=== PATIENT | female | born 1955 | race Caucasian/White ===

== ENCOUNTER 2020-08-13 10:31 | Outpatient (CLI) | payer MEDICARE | END 2020-08-13 10:32 | disposition EMS.NT | LOC: EMS 10:31 | DX: Z04.3 Encounter for examination and observation following other accident (principal); M25.532 Pain in left wrist; R07.81 Pleurodynia ==

== ENCOUNTER 2020-08-13 11:22 | Emergency (ER) | payer MEDICARE ==
--- NOTE | 2020-08-13 12:36 | XRAY Report ---
PROCEDURE: Ribs w/PA Chest LT INDICATIONS: rib/wrist inj TECHNIQUE: 2 views of the left lower ribs were acquired, along with a single view chest. COMPARISON: None. FINDINGS: Surgical changes and devices: None. Bones and chest wall: No fractures or dislocations, but the body habitus is large and the metallic m arker indicating area of reported tenderness on the left is low over the chest and soft tissues rende ring accurate assessment very limited in that area. No suspicious bony lesions. Overlying soft tiss ues appear unremarkable. Lungs and pleura: No pleural effusions or pneumothorax. Lungs appear clear likely clear except for presence of a 1 x 2 cm focal radiodensity at the upper left lung, asymmetric when compared to the vivek e area on the right.. Mediastinum: Mediastinal contours appear normal. Heart size is normal. IMPRESSION: No rib fracture found but body habitus is large and quality of visualization in the lower lateral lef t chest wall is very limited due to these factors. Possible lung mass 1 x 2 cm superimposed on the left upper lobe, in an area that could represent asym metric calcification at the first costochondral junction but a similar appearance is not seen on the right. Noncontrast chest CT may be warranted versus follow-up by chest plain films in 3, 6 and 12 mon ths. Reviewed by: German Alexander MD on 08/13/2020 12:34 PM PDT Approved by: German Alexander MD on 08/13/2020 12:34 PM PDT Station ID: [id number]
--- NOTE | 2020-08-13 12:37 | XRAY Report ---
PROCEDURE: Wrist 4 View LT INDICATIONS: rib/wrist inj TECHNIQUE: 4 views of the wrist were acquired. COMPARISON: None FINDINGS: Bones: No fractures or dislocations but there is severe arthritic change at the base of the first me tacarpal as it articulates against the trapezium which also is severely degenerated distally.. No de oliveira spicious bony lesions. Scaphoid view: No trauma to the scaphoid is found. Soft tissues: No suspicious soft tissue calcifications. IMPRESSION: Severe degenerative osteoarthritis is seen at the joint space between the distal trapezium and the ba se of the first metacarpal. No acute fracture is suspected. Reviewed by: German Alexander MD on 08/13/2020 12:36 PM PDT Approved by: German Alexander MD on 08/13/2020 12:36 PM PDT Station ID: [id number]
--- NOTE | 2020-08-13 13:37 | CT Report ---
PROCEDURE: CHEST WO INDICATIONS: abn cxr TECHNIQUE: Noncontrast 5 mm thick sections acquired from the pulmonary apices to the posterior costophrenic angl es. 7 mm thick coronal and sagittal MIP reformats were then acquired. For radiation dose reduction, the following was used: automated exposure control, adjustment of mA and/or kV according to patient size. COMPARISON: FINDINGS: Image quality: Excellent. Lungs and pleura: No acute air space opacities. The area of plain film concern earlier today regard ing a possible 1 x 2 cm mass superimposed on the upper third of the left lung parenchyma is found to represent asymmetric dense calcification within the costochondral junction corresponding to this area on the left. No pleural effusions or pneumothorax. Central and peripheral airways are patent and no rmal in caliber. Mediastinum: Heart size is normal. No pericardial effusion. No mediastinal adenopathy by size crit eria. Thoracic aorta and central pulmonary arteries are normal in size. Esophagus is normal in panchito zachary. No hiatal hernia. Bones and chest wall: No suspicious bony lesions. No vertebral body compression fractures. No axil toshia or supraclavicular adenopathy by size criteria. The thyroid is normal in size and there are no incidental findings. Abdomen: Visualized upper abdominal solid organs and bowel loops appear normal in the absence of con trast. IMPRESSION: No lung mass is seen in the area of prior plain film concern from earlier today, upper third of the l eft lung parenchyma. The radiodensity seen in that area overlapping the lung represents dense costoch ondral junction calcification on the left. No follow-up recommended. Reviewed by: German Alexander MD on 08/13/2020 1:35 PM PDT Approved by: German Alexander MD on 08/13/2020 1:35 PM PDT Station ID: [id number]
--- NOTE | 2020-08-13 13:42 | ED Physician Documentation ---
History of Present Illness - Stated complaint Stated Complaint: LT WRIST INJURY - Chief complaint Chief Complaint: Trauma Ext - History obtained from History obtained from: Patient - Additonal information Additional information: Slip and fall in a parking lot parking area. She landed on her left side injuring her left wrist and lower lateral left ribs. No other injuries. Declines pain medication on initial evaluation. Review of Systems Constitutional: reports: Reviewed and negative Eyes: reports: Reviewed and negative Ears: reports: Reviewed and negative Nose: reports: Reviewed and negative Throat: reports: Reviewed and negative PD PAST MEDICAL HISTORY - Past Medical History Cardiovascular: Hypertension Neuro: CVA, Other Musculoskeletal: Osteoarthritis, Chronic back pain Other Past Medical History: vertigo - Past Surgical History Ortho: Knee replacement - Present Medications Home Medications: Ambulatory Orders Medication Instructions Recorded Confirmed Alendronate [Fosamax] 70 mg PO ONCE 08/13/20 08/13/20 Benazepril HCl [Lotensin] 1 tab PO DAILY 08/13/20 08/13/20 Carvedilol [Coreg] 25 mg PO DAILY 08/13/20 08/13/20 Clopidogrel [Plavix] 75 mg PO DAILY 08/13/20 08/13/20 Gabapentin [Neurontin] 1 tab PO BID 08/13/20 08/13/20 Sertraline [Zoloft] 1 tab PO DAILY 08/13/20 08/13/20 hydrALAZINE [Apresoline] 75 mg PO DAILY 08/13/20 08/13/20 traMADol [Ultram] 50 mg PO Q6H PRN #15 tablet 08/13/20 traZODone [Desyrel] 50 mg PO HS 08/13/20 08/13/20 - Allergies Allergies/Adverse Reactions: Allergies Allergy/AdvReac Type Severity Reaction Status Date / Time hydromorphone [From Dilaudid] Allergy Rash Verified 08/13/20 12:25 - Social History Does the pt smoke?: No Smoking Status: Never smoker Does the pt drink ETOH?: No Does the pt have substance abuse?: Yes Substance Use and Type: CBD oil / Products PD ED PE NORMAL - Vitals Vital signs reviewed: Yes - General General: Alert and oriented X 3, No acute distress, Other (Exam slightly limited as she has fibromyalgia and is tender pretty much everywhere even in areas where she has not been injured.) - Neck Neck: Supple, no meningeal sign, No bony TTP - Cardiac Cardiac: RRR, No murmur - Respiratory Respiratory: No respiratory distress, Clear bilaterally, Other (Diffuse tenderness to the left chest wall, no ecchymosis.) - Abdomen Abdomen: Normal bowel sounds, Soft, Non tender - Back Back: No CVA TTP, No spinal TTP - Derm Derm: Normal color, Warm and dry - Extremities Extremities: Other (Tenderness about the left dorsal wrist, some swelling, limited range of motion due to pain, no deformity. NVI in the hand.) - Neuro Neuro: Alert and oriented X 3, Normal speech Results - Vitals Vitals: Vital Signs - 24 hr 08/13/20 08/13/20 11:44 13:57 Temperature 37.1 C Heart Rate 57 L 60 Respiratory 18 16 Rate Blood Pressure 143/90 H 138/65 H O2 Saturation 97 93 - Rads (name of study) Left wrist and left wrist Radiology: EMP read contemporaneously (Severe OA left first CMC, no clear rib fracture, potential lung mass could be better evaluated with chest CT) Chest CT Radiology: EMP read contemporaneously (No mass or displaced rib fracture.) PD MEDICAL DECISION MAKING - ED course ED course: 64-year-old woman with ground-level fall onto the left side injuring the left chest wall and wrist. No fracture on either x-ray but there was a concern for mass on the chest x-ray. Discussed follow-up options and she opted for CT today which was without evidence of mass or rib fracture as well. Departure - Departure Disposition: 01 Home, Self Care Clinical Impression: Fall from ground level Left wrist sprain Qualifiers: Encounter type: initial encounter Qualified Code(s): S63.502A - Unspecified sprain of left wrist, initial encounter Contusion of left chest wall Qualifiers: Encounter type: initial encounter Qualified Code(s): S20.212A - Contusion of left front wall of thorax, initial encounter Condition: Good Instructions: ED Contusion Chest Wall, ED Sprain Wrist Prescriptions: traMADol [Ultram] 50 mg PO Q6H PRN #15 tablet PRN Reason: Pain Comments: Regarding the wrist, if not improving over the next week talk with your doctor about repeat x-rays in a week or 2. You can wear the splint for comfort. Chest CT did not demonstrate broken ribs nor Lung mass. No specific follow-up necessary. I am prescribing a short course of narcotic pain medication for you. These are potentially dangerous and addictive medications that should be used carefully. These medications may constipate you. Take an [id number]-igm-[id number] stool softener (docusate) twice daily with plenty of water while taking these medications. If you go 24 hours without a bowel movement, take sfzf-nxd-gvuinik miralax, per package instructions. Do not drink or drive while taking these medications. If you received narcotic or sedating medications while in the emergency d epartment, do not drive for 24 hours. Store this medication in a safe, secure place and out of reach of children. It is a violation of federal law to give or sell this medication to another person or to use in a manner other than prescribed. The ED will not refill narcotic prescriptions, including prescriptions lost or stolen. To dispose of unwanted medications: 1. [facility] at [address] in [place] has a medication drop box. They accept prescription medications (in pill form) Thursday through Thursday 9:00 a.m. to 5:00 p.m. 2. The [facility] [employer] accepts prescription medications (in pill form only) for disposal year round. Call for more information. 3. Contact the [facility] for the next [facility] sponsored prescription drug collection event. , [phone], or [phone]; Note that many narcotic pain relievers also contain Tylenol/acetaminophen. Please ensure that your total dose of acetaminophen from all sources does not exceed 3 g (3000 mg) per day. Discharge Date/Time: 08/13/20 14:07
[2020-08-13 14:02] VITALS: BP 138/65
== END 2020-08-13 14:07 | disposition home or self-care (01) ==
LOC: ED 11:22
DX: S63.502A Unspecified sprain of left wrist, initial encounter (principal); S20.212A Contusion of left front wall of thorax, initial encounter; W01.0XXA Fall on same level from slipping, tripping and stumbling without subsequent striking against object, initial encounter; Y92.481 Parking lot as the place of occurrence of the external cause; M19.032 Primary osteoarthritis, left wrist; M79.7 Fibromyalgia; I10 Essential (primary) hypertension; Z86.73 Personal history of transient ischemic attack (TIA), and cerebral infarction without residual deficits; Z79.02 Long term (current) use of antithrombotics/antiplatelets
CPT/HCPCS: 99283; 99284